=== PATIENT | female | born 1965 | race Caucasian/White ===

== ENCOUNTER 2024-04-20 16:40 | Emergency (ER) | payer OTHER, SELFPAY ==
[2024-04-20 17:28] VITALS: BP 139/91; PULSE 75; RESP 16; TEMP 36.5; O2SAT 100
--- NOTE | 2024-04-20 17:45 | ED.FEMALEGU ---
HPI - Female Genitourinary General Chief complaint: Urogenital-Female Stated complaint: uti symptoms Time Seen by Provider: 04/20/24 17:40 Source: patient Mode of arrival: ambulatory Limitations: no limitations History of Present Illness HPI Narrative: Rolanda is a 58-year-old female patient presenting to the clinic today with complaints a possible urinary tract infection. She reports that she has had the symptoms for 1.5 weeks. States she is having burning, frequency, and urgency. Denies any abdomen pain or flank pain. No fever or chills. Related Data Allergies Allergy/AdvReac Type Severity Reaction Status Date / Time No Known Allergies Allergy Verified 04/20/24 17:27 Review of Systems Review of Systems: Pertinent positives per HPI. Patient denies any fever, chills, rash, headache, visual changes, dizziness, cough, runny nose, sore throat, shortness of breath, chest pain, palpitations, nausea, vomiting, diarrhea, constipation, abdominal pain, or any urinary issues. PMFSH Comments At the time of my signature, I reviewed and agree with the nursing past medical, surgical, social, and family history. There is no relevant family history pertinent to the patient complaint. Exam Narrative: General: Well-developed, well nourished, in no apparent distress. Head: Normocephalic, atraumatic. Cardio: Regular rate and rhythm, s1 and s2 normal, no murmur appreciated. Resp: Clear to auscultation bilaterally, no rhonchi, rales, wheezing or rubs. Abdomen: Soft, pliable, bowel sounds present in all quadrants, non-tender to palpation, no organomegly, no CVAT tenderness. Course Course Emergency Course: Portions of this record may have been created with voice recognition software. Level of Care: Express Care Visit Vital Signs Vital signs: Vital Signs Temperature 36.5 C 04/20/24 17:28 Pulse Rate 75 04/20/24 17:28 Respiratory Rate 16 04/20/24 17:28 Blood Pressure 139/91 H 04/20/24 17:28 Pulse Oximetry 100 04/20/24 17:28 Oxygen Delivery Room Air 04/20/24 17:28 Temperature 36.5 C 04/20/24 17:28 Pulse Rate 75 04/20/24 17:28 Respiratory Rate 16 04/20/24 17:28 Blood Pressure 139/91 H 04/20/24 17:28 Pulse Oximetry 100 04/20/24 17:28 Oxygen Delivery Room Air 04/20/24 17:28 Vital signs reviewed MDM - Female Genitourinary MDM Narrative Medical decision making narrative: At the time of visit patient is resting comfortably on the exam table. Patient appears to be nontoxic. Labs: UA positive for leukocytes and blood. We will send for culture. Plan: I suspect patient has a urinary tract infection. Prescription for Bactrim was sent to the pharmacy. We will send urine for culture. Supportive measures were discussed with the patient and they voiced understanding discharge instructions and agrees to treatment plan. Return precautions reviewed Differential Diagnosis Differential diagnosis: Likely urinary tract infection and cystitis Lab Data Labs: Urine Glucose Negative Reference Range: Negative Urine Bilirubin Negative Reference Range: Negative Urine Ketone Negative Reference Range: Negative Urine Specific Mead 1.015 Reference Range:1.001-1.035 Urine Blood 2+ Reference Range: Negative * * Urine pH 6.0 Reference Range: 5.0-9.0 Urine Protein 1+ Reference Range: Negative Urine Urobilinogen 0.2
== END 2024-04-20 17:59 | disposition home or self-care (01) ==
PROVIDERS: Emergency Provider Nurse Practitioner Family; Referring Provider Family Medicine
DX: N39.0 Urinary tract infection, site not specified (principal); B96.20 Unspecified Escherichia coli [E. coli] as the cause of diseases classified elsewhere
CPT/HCPCS: 81003; 87077; 87086; 87088; 87186; 99203; G0463